=== PATIENT | male | born 1965 | race Caucasian/White ===

== ENCOUNTER 2025-02-15 13:46 | Observation (INO) | payer MEDICARE, SELFPAY ==
[2025-02-15] VITALS (7 sets, daily range): BP systolic 121–156; BP diastolic 57–83; PULSE 74–96; RESP 16–21; TEMP 36.3–36.7; O2SAT 97–99; BMI 23.0; BMI 21.6
[2025-02-15 13:55] LABS: Glucose Point of Care 144 mg/dL (70-110)
--- NOTE | 2025-02-15 14:13 | XRR_ITS ---
PROCEDURE INFORMATION: Exam: XR Chest Exam date and time: 02/15/2025 2:19 PM Age: 59 years old Clinical indication: Other: Weakness TECHNIQUE: Imaging protocol: Radiologic exam of the chest. Views: 1 view. COMPARISON: No relevant prior studies available. FINDINGS: Lungs: Unremarkable. No consolidation. Pleural spaces: Unremarkable. No pleural effusion. No pneumothorax. Heart/Mediastinum: Unremarkable. No cardiomegaly. Bones/joints: Unremarkable. XR/XR chest 1V portable [id number] IMPRESSION: No acute findings.
--- NOTE | 2025-02-15 14:46 | ECG_ITS ---
[facility] Test Date: 2025-02-15 Pat Name: Keo Pratt Department: Room: Gender: Male Travel Cota: : 1965 Requested By: Jean Pierre Perez Order Number: [id number] Eric MD: Madelyn Smith M.D. Measurements Intervals [place] Rate: 99 P: 76 KS: 136 QRS: 75 QRSD: 101 T: 39 QT: 382 QTc: 492 Interpretive Statements SINUS RHYTHM WITH OCCASIONAL VENTRICULAR PREMATURE COMPLEXES NONSPECIFIC ST & T-WAVE ABNORMALITY No previous ECG available for comparison Electronically Signed On 02-15-2025 17:40:53 CDT by Madelyn Smith M.D. [email or web address]
[2025-02-15 14:59] LABS: Basophils # 0.1 10^3/uL (0.0-0.1); Basophils % 0.7 %; Eosinophils # 0.1 10^3/uL (0.0-0.8); Eosinophils % 0.7 %; Lymphocytes # 1.7 10^3/uL (0.8-4.8); Lymphocytes % 15.9 %; Mean Corpuscular HGB Conc 36.2 g/dL (30-55); Mean Corpuscular Volume 91.1 fl (82-101); Mean Platelet Volume 9.4 fL (7.4-10.4); Monocytes # 0.7 10^3/uL (0.2-0.9); Monocytes % 6.9 %; Neutrophils # 8.05 10^3/uL (1.8-7.7); Neutrophils % 75.4 %; Nucleated Red Blood Cells % 0 %; Platelet Count 279 10^3/cmm (157-399); Red Blood Count 4.94 10^6/uL (3.85-5.65); Red Cell Distribution Width 12.9 % (12.1-15.1); White Blood Count 10.68 10^3/uL (3.29-11.43)
--- NOTE | 2025-02-15 15:23 | CTR_ITS ---
PROCEDURE INFORMATION: Exam: CT Head Without Contrast Exam date and time: 02/15/2025 3:33 PM Age: 59 years old Clinical indication: Weakness, extremity TECHNIQUE: Imaging protocol: Computed tomography of the head without contrast. Radiation optimization: All CT scans at this facility use at least one of these dose optimization techniques: automated exposure control; mA and/or kV adjustment per patient size (includes targeted exams where dose is matched to clinical indication); or iterative reconstruction. COMPARISON: CT angio headneck* [id number] 02/15/2025 3:33 PM RADIATION DOSE METRICS: Total DLP (mGy-cm): 1032.4 FINDINGS: Brain: Normal. No hemorrhage. Unremarkable white matter. No mass effect. Cerebral ventricles: No ventriculomegaly. Paranasal sinuses: Visualized sinuses are unremarkable. No fluid levels. Mastoid air cells: Visualized mastoid air cells are well aerated. Bones: Unremarkable. No acute fracture. Soft tissues: Unremarkable. CT/CT head wo con* [id number] IMPRESSION: No acute intracranial abnormality.
--- NOTE | 2025-02-15 15:27 | CTR_ITS ---
PROCEDURE INFORMATION: Exam: CTA Head With Contrast, Arteriography Exam date and time: 02/15/2025 3:33 PM Age: 59 years old Clinical indication: Weakness; Additional info: CVA TECHNIQUE: Imaging protocol: Computed tomographic angiography of the head with contrast. Exam focused on the arteries. 3D rendering (Not supervised by radiologist): MIP and/or 3D reconstructed images were created by the technologist. Radiation optimization: All CT scans at this facility use at least one of these dose optimization techniques: automated exposure control; mA and/or kV adjustment per patient size (includes targeted exams where dose is matched to clinical indication); or iterative reconstruction. Contrast material: OMNI 350; Contrast volume: 100 ml; Contrast route: INTRAVENOUS (IV); COMPARISON: CT head wo con* [id number] 02/15/2025 3:33 PM RADIATION DOSE METRICS: Total DLP (mGy-cm): 381.4 FINDINGS: ANTERIOR CIRCULATION: Right internal carotid artery: Intracranial segment is patent with no significant stenosis. No aneurysm. Right middle cerebral artery: No occlusion or significant stenosis. No aneurysm. Right anterior cerebral artery: No occlusion or significant stenosis. No aneurysm. Left internal carotid artery: Intracranial segment is patent with no significant stenosis. No aneurysm. Left middle cerebral artery: No occlusion or significant stenosis. No aneurysm. Left anterior cerebral artery: No occlusion or significant stenosis. No aneurysm. POSTERIOR CIRCULATION: Right vertebral artery: No occlusion or significant stenosis. No aneurysm. Left vertebral artery: No occlusion or significant stenosis. No aneurysm. Basilar artery: No occlusion or significant stenosis. No aneurysm. Right posterior cerebral artery: No occlusion or significant stenosis. No aneurysm. Left posterior cerebral artery: No occlusion or significant stenosis. No aneurysm. Brain: No definite mass, mass effect, or midline shift. Cerebral ventricles: No ventriculomegaly. Bones/joints: Unremarkable. No acute fracture. Soft tissues: Unremarkable. PROCEDURE INFORMATION: Exam: CTA Neck With Contrast Exam date and time: 02/15/2025 3:33 PM Age: 59 years old Clinical indication: Weakness; Additional info: CVA TECHNIQUE: Imaging protocol: Computed tomographic angiography of the neck with contrast. Exam focused on the cervical segments of the vasculature. 3D rendering (Not supervised by radiologist): MIP and/or 3D reconstructed images were created by the technologist. Radiation optimization: All CT scans at this facility use at least one of these dose optimization techniques: automated exposure control; mA and/or kV adjustment per patient size (includes targeted exams where dose is matched to clinical indication); or iterative reconstruction. Contrast material: OMNI 350; Contrast volume: 100 ml; Contrast route: INTRAVENOUS (IV); COMPARISON: CR XR chest 1V portable [id number] 02/15/2025 2:19 PM RADIATION DOSE METRICS: Total DLP (mGy-cm): 381.4 FINDINGS: Right common carotid artery: No stenosis. No dissection or occlusion. Right internal carotid artery: No stenosis of the extracranial segment. No dissection or occlusion. Right external carotid artery: No occlusion or stenosis of the origin. Left common carotid artery: No stenosis. No dissection or occlusion. Left internal carotid artery: No stenosis of the extracranial segment. No dissection or occlusion. Left external carotid artery: No occlusion or stenosis of the origin. Right vertebral artery: No stenosis. No dissection or occlusion. Left vertebral artery: No stenosis. No dissection or occlusion. Soft tissues: Normal. No significant soft tissue swelling. Bones/joints: No acute fracture. CT/CT angio headneck* [id number] IMPRESSION: No large vessel stenosis or occlusion. IMPRESSION: No stenosis or occlusion. REFERENCES: NASCET CRITERIA. The degree of stenosis in the cervical segment of the internal carotid artery is based on NASCET criteria. Normal is no stenosis. Mild is less than 50% stenosis. Moderate is 50-69% stenosis. Severe is 70% to 99% stenosis. Total occlusion is no detectable patent lumen.
--- NOTE | 2025-02-15 15:29 | ED_ITS ---
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 States over the last 3 days he had symptoms similar to his previous stroke. He states the last 3 days he has been having unsteady gait feeling extremely weak having some right eye vision changes. States he is having allover weakness states that last known normal was 3 days ago but has gotten worse today he denies any headaches denies any falls. Associated symptoms: Denies chest pain, chills, fever(s), headache(s), nausea or vomiting Review of Systems 2 Const: Denies: fever(s), chills, body aches or change in appetite Eyes: Reports: change in vision and blurry vision; Denies: eye discomfort ENMT: Denies: throat pain or dental pain Card: Denies: chest pain Resp: Denies: dyspnea GI: Denies: abdominal pain, nausea, vomiting or diarrhea Musc: Denies: neck pain or back pain Skin/Breast: Denies: rash Neuro: Reports: weakness in extremities and difficulty walking; Denies: headache(s) Physical Exam 2 Const: COMMON NORMALS: no acute distress, patient oriented x3 and healthy appearing HENMT: COMMON NORMALS: normocephalic and atraumatic HEAD & SCALP: n ormocephalic and atraumatic Eye: COMMON NORMALS: Equal, round and reactive pupils present and EOMs intact bilaterally PUPIL: Yes Equal, round and reactive pupils present Neck/C-Spine: COMMON NORMALS: full ROM and supple Chest: COMMONS NORMALS: normal inspection of the chest Resp: COMMON NORMALS: normal respiratory effort Cardio: COMMON NORMALS: regular rate, regular rhythm and No murmurs present (Cardio) RATE: regular rate RHYTHM: regular rhythm Extremity: COMMON NORMALS: normal to inspection and full ROM Neuro: COMMON NORMALS: patient oriented x3 OTHER: Patient has a difficult time standing along with ataxic gait some right sided weakness. Psych: COMMON NORMALS: mental status grossly normal, Normal thought process present and cooperative THOUGHT PROCESS: Normal thought process present Skin: COMMON NORMALS: no rashes or lesions noted and no wounds GENERAL SKIN EXAM: no rashes or lesions noted Course 2 Vital Signs: Vital signs: Vital Signs Temperature 97.8 F 02/15/25 13:52 Pulse Rate 96 02/15/25 13:52 Respiratory Rate 21 H 02/15/25 13:52 Blood Pressure 143/75 02/15/25 13:52 Pulse Oximetry 99 02/15/25 13:52 Oxygen Delivery Me thod Room Air 02/15/25 13:52 MDM - Weakness Medical Decision Making Patient presents here with weakness he is having ataxia some vision changes has had a history of strokes in the past this has been going on for 3 days his last known normal was 3 days ago he is not a tPA candidate due to timing CTA showed no acute thrombus he is hypokalemic I spoke to the hospitalist will admit at this time. Medical Records I reviewed the patient's medical records. Lab Data I reviewed the patient's lab results. 02/15/25 14:35 02/15/25 14:35 Radiology Impressions Chest X-Ray 02/15/25 14:13 IMPRESSION: No acute findings. Head CT 02/15/25 15:23 IMPRESSION: No acute intracranial abnormality. Head/Neck CTA 02/15/25 15:27 IMPRESSION: No large vessel stenosis or occlusion. IMPRESSION: No stenosis or occlusion. REFERENCES: NASCET CRITERIA. The degree of stenosis in the cervical segment of the internal carotid artery is based on NASCET criteria. Normal is no stenosis. Mild is less than 50% stenosis. Moderate is 50-69% stenosis. Severe is 70% to 99% stenosis. Total occlusion is no detectable patent lumen. Laboratory Results WBC 10.68 10^3/uL (3.29-11.43) 02/15/25 14:35 RBC 4.94 10^6/uL (3.85-5.65) 02/15/25 14:35 Hgb 16.30 g/dL (11.27-16.99) 02/15/25 14:35 Hct 45.0 % (37-53) 02/15/25 14:35 MCV 91.1 fl (82-101) 02/15/25 14:35 MCH 33.0 pg (27-33) 02/15/25 14:35 MCHC 36.2 g/dL (30-55) 02/15/25 14:35 RDW 12.9 % (12.1-15.1) 02/15/25 14:35 Plt Count 279 10^3/cmm (157-399) 02/15/25 14:35 MPV 9.4 fL (7.4-10.4) 02/15/25 14:35 Neut % (Auto) 75.4 % 02/15/25 14:35 Lymph % (Auto) 15.9 % 02/15/25 14:35 Pershing % (Auto) 6.9 % 02/15/25 14:35 Eos % (Auto) 0.7 % 02/15/25 14:35 Baso % (Auto) 0.7 % 02/15/25 14:35 Neut # (Auto) 8.05 10^3/uL (1.8-7.7) H 02/15/25 14:35 Lymph # (Auto) 1.7 10^3/uL (0.8-4.8) 02/15/25 14:35 Pershing # (Auto) 0.7 10^3/uL (0.2-0.9) 02/15/25 14:35 Eos # (Auto) 0.1 10^3/uL (0.0-0.8) 02/15/25 14:35 Baso # (Auto) 0.1 10^3/uL (0.0-0.1) 02/15/25 14:35 Nucleated RBC % (auto) 0 % 02/15/25 14:35 Nucleated RBCs # 0.0 /100WBC 02/15/25 14:35 PT 11.90 SECONDS (12.1-14.9) L 02/15/25 11:13 INR 0.82 (0.8-1.2) 02/15/25 11:13 Sodium 144 mmol/L (136-145) 02/15/25 14:35 Potassium 2.8 mmol/L (3.5-5.1) L* 02/15/25 14:35 Chloride 105 mmol/L (98-107) 02/15/25 14:35 Carbon Dioxide 22 mmol/L (22-29) 02/15/25 14:35 Anion Gap 19.8 (5-19) H 02/15/25 14:35 BUN 18 mg/dL (6-20) 02/15/25 14:35 Creatinine 0.7 mg/dL (0.7-1.2) 02/15/25 14:35 GFR Calculation 116.2 mL/min (90-130) 02/15/25 14:35 Glucose 56 mg/dL (65-115) L 02/15/25 14:35 POC Glucose 144 mg/dL (70-110) H 02/15/25 13:51 Calculated Osmolality 298 mOsm/kg (285-295) H 02/15/25 14:35 Calcium 10.1 mg/dL (8.5-10.5) 02/15/25 14:35 Magnesium 1.8 mg/dL (1.7-2.3) 02/15/25 14:35 Total Bilirubin 0.2 mg/dL (0.15-1.2) 02/15/25 14:35 AST 23 U/L (0-40) 02/15/25 14:35 ALT 22 U/L (0-41) 02/15/25 14:35 Alkaline Phosphatase 71 U/L (40-130) 02/15/25 14:35 Total Protein 7.5 g/dL (6.6-8.7) 02/15/25 14:35 Albumin 4.6 g/dL (3.5-5.2) 02/15/25 14:35 Globulin 2.9 g/dL (1.3-4.6) 02/15/25 14:35 TSH 1.70 uIU/mL (0.27-4.20) 02/15/25 14:35 All radiology interpretation(s) finalized by discharge Discharge Plan Discharge Patient Disposition: Admitted As Inpatient Clinical Impression: Weakness, Hypokalemia Condition: Stable Coding Level of Care Code ED Online Marketer for g Fwd Related Data Allergies Allergy/AdvReac Type Severity Reaction Status Date / Time cephalexin (From Keflex) Allergy ALGY-Hives Verified 02/15/25 13:58 Penicillins Allergy ALGY-Hives Verified 02/15/25 13:58 NIH stroke score NIHSS Level Of Consciousness - 1a: 0 Level Of Consciousness Questions - 1b: Both Correct Level Of Consciousness Commands - 1c: Both Correct Best Gaze - 2: Normal Visual Oswald - 3: Partial Hemianopia Facial Palsy - 4: Normal Motor Arm Right - 5: Drift Motor Arm Left - 5: No Drift Motor Leg Right - 6: Drift Motor Leg Left - 6: No Drift Limb Ataxia - 7: Present In One Limb Sensory - 8: Normal Best Language - 9: No Aphasia Dysarthia - 10: Normal Extinction And Inattention - 11: 0 Score Total Score: 4
[2025-02-15 15:31] LABS: Alanine Aminotransferase 22 U/L (0-41); Albumin Level 4.6 g/dL (3.5-5.2); Alkaline Phosphatase 71 U/L (40-130); Anion Gap 19.8 (5-19); Aspartate Amino Transferase 23 U/L (0-40); Blood Urea Nitrogen 18 mg/dL (6-20); Calcium 10.1 mg/dL (8.5-10.5); Carbon Dioxide 22 mmol/L (22-29); Chloride 105 mmol/L (98-107); Creatinine Clr Calc Pharmacy 109.2359; Globulin 2.9 g/dL (1.3-4.6); Glomerular Filtration Rate 116.2 mL/min (90-130); Glucose 56 mg/dL (65-115); Osmolality Calculated 298 mOsm/kg (285-295); Sodium 144 mmol/L (136-145); Total Bilirubin 0.2 mg/dL (0.15-1.2); Total Protein 7.5 g/dL (6.6-8.7)
[2025-02-15 15:32] LABS: Potassium 2.8 mmol/L (3.5-5.1)
[2025-02-15] MEDS: iohexol 350 mg/mL 500 mL Btl (per mL) IV (15:39)
[2025-02-15] MEDS: potassium chloride ER 20 mEq Tablet 40 MEQ PO ×2 (15:46→18:36)
[2025-02-15 16:01] LABS: INR 0.82 (0.8-1.2)
[2025-02-15 16:08] LABS: Magnesium 1.8 mg/dL (1.7-2.3)
--- NOTE | 2025-02-15 16:28 | PC.PHAR ---
Addendum entered by Niki Daniel 02/15/25 16:47: Med list found and is from [facility]-returned to pts' room. Original Note: Pt states he took his am medications today. Family states pt gave the nurse a packet with his current med list in it. We are unable to find it. Nothing comes in from internal or external med list.
[2025-02-15] MEDS: aspirin 81 mg Chew Tablet 324 MG PO (17:09)
--- NOTE | 2025-02-15 17:14 | PM.HP ---
Providers/Chief Complaint Admitting Physician: Nils Johnson MD Chief Complaint: stroke like symptoms History of Present Illness Keo Pratt is a 59 year old male with history of brainstem stroke in what he reports as 50% right vertebral stenosis 2021 and 2022 in [facility], increased to 75% in December 2023 in [place]. He has been ataxic in the mornings for a couple hours and requires a walking stick and then this improves. Last couple days he has had sharp spasms in charley horse cramps in his legs throat and chest. He thought his ataxia was reminiscent of his past brainstem stroke. For this reason he presented to the emergency department. He does not have a local physician. Previously he lived with his girlfriend and [place] and then lived in [place]. He has been recently moved in with his [id number] Devi Nagy who is present at bedside and his brother Goyo Pratt. Patient has never had carotid or vertebral surgery. He reports that his blood sugars have been up-and-down recently. Notably he has a history of hernia that he was going to have repaired 03/08/2024 but that was canceled due to his blood sugar being 503. Patient reports he has had pancreatitis 03/03/2025 but is not an alcoholic. He drinks about 2 beers a week Review of Systems Narrative: General Positive for weakness dizziness confusion Cardiovascular no chest pain palpitations or edema Respiratory no shortness of breath cough wheezing GI no nausea vomiting diarrhea constipation no dysuria he has had some urinary hesitancy and was having trouble voiding into the urinal Neuro positive for stroke with ataxia. Mostly his motor strength has been preserved. He says his balance is bad in the mornings better through the day Musculoskeletal he has had cramps legs chest and throat Medications/Allergies Home Medications ?Medication ?Instructions ?Recorded ?Confirmed ?Last Taken ?Type acetaminophen 500 mg tablet 500 mg PO Q6H PRN Pain 02/15/25 02/15/25 Unknown History amlodipine 5 mg tablet 5 mg PO QPM 02/15/25 02/15/25 02/14/25 History aspirin 81 mg tablet,delayed 81 mg PO .@NOON 02/15/25 02/15/25 02/15/25 History release atorvastatin 80 mg tablet 80 mg PO QPM 02/15/25 02/15/25 02/14/25 History clopidogrel 75 mg tablet 75 mg PO .@NOON 02/15/25 02/15/25 02/15/25 History empagliflozin 25 mg tablet 25 mg PO QAM 02/15/25 02/15/25 02/15/25 History (Jardiance) fluoxetine 20 mg capsule (Prozac) 20 mg PO QAM 02/15/25 02/15/25 02/15/25 History icosapent ethyl 1 gram capsule 2 g PO BID 02/15/25 02/15/25 02/15/25 History (Vascepa) insulin aspart U-100 100 unit/mL 8 - 10 unit SUBCUT TID 02/15/25 02/15/25 02/15/25 History (3 mL) subcutaneous pen (Novolog FlexPen U-100 Insulin aspart) insulin detemir U-100 100 unit/mL 60 unit SUBCUT BID 02/15/25 02/15/25 02/15/25 History (3 mL) subcutaneous pen lisinopril 20 mg tablet 20 mg PO QAM 02/15/25 02/15/25 02/15/25 History methocarbamol 500 mg tablet 500 mg PO QID 02/15/25 02/15/25 02/15/25 History omeprazole 40 mg capsule,delayed 40 mg PO DAILY 02/15/25 02/15/25 02/15/25 History release tadalafil 5 mg tablet 5 mg PO QPM 02/15/25 02/15/25 02/14/25 History Allergies Allergy/AdvReac Type Severity Reaction Status Date / Time cephalexin (From Keflex) Allergy ALGY-Hives Verified 02/15/25 13:58 Penicillins Allergy ALGY-Hives Verified 02/15/25 13:58 PFSH Acute PFSH: Medical History (Updated 02/15/25 @ 17:23 by Nils Johnson MD) Ataxia due to acute cerebrovascular disease Social History (Updated 02/15/25 @ 17:20 by Nils Johnson MD) Smoking and tobacco/nicotine status: former use of tobacco/nicotine Quit status (tobacco/nicotine): has quit using Alcohol intake: current Alcohol intake frequency: few times a week Alcohol use comment: 2 drinks a week mostly beer Substance/Drug Use: never Additional social history: He wants full code as discussed today with myself and his ecxvjc-rq-[id number] Devi Vitals/I&O/Wt Last Vital Signs Temp 97.8 F 02/15/25 13:52 Pulse 79 02/15/25 17:13 Resp 21 H 02/15/25 13:52 BP 121/81 02/15/25 17:13 Pulse Ox 99 02/15/25 17:13 O2 Del Method Room Air 02/15/25 13:52 Weight last 48 hrs Weight 66.678 kg Physical Exam Narrative: General well-developed well-nourished male in no acute cardiopulmonary distress Neuro he has a befuddled affect. He is oriented to person place month not specific date he did know the Trump was or president. He continually states that he is confused Face is symmetric eye squint symmetric external ocular movements intact pupils equally round and reactive light accommodation Motor 5 - bilateral handgrips biceps triceps 5/5 patient's [id number]-za-rqbx is intact but he is slow to follow commands. No dysdiadochokinesis. Opvj-yd-qmvh is intact Skin damp and clammy CV regular rate and rhythm 2/6 systolic ejection murmur best heard at the right upper sternal border Lungs clear to auscultation bilateral Right neck trace radiated murmur from the heart I do not hear neck bruits Calves no edema or asymmetry Data 02/15/25 14:35 02/15/25 14:35 A&P Assessment and plan (1) Ataxia due to acute cerebrovascular disease: History of brainstem CVA and vertebral stenosis he describes a 75% but I do not have any records. Our CTA of the head and neck shows no stenosis occlusion or dissection of either side carotids or vertebrals. The patient's confusion and clamminess is consistent with hypoglycemia for which she had a blood sugar of 59 here we will recheck and follow (2) Hypokalemia: Potassium 2.8 and the patient is having cramps will replace (3) Hypoglycemia: Recheck blood sugars decrease insulin check A1c (4) Weakness: As above start physical therapy if not improving will obtain MRI of the brain PDMP PDMP Reviewed: Not Reviewed Attestations Medical Necessity Statement*: Patient be admitted to the hospital overnight for physical therapy and Occupational Therapy and monitoring blood sugars and for symptoms of possible stroke on telemetry I do not expect the hospitalization to cross 2 midnights Coding Level of Care Code 62114 Diagnoses Ataxia due to acute cerebrovascular disease I67.89; R27.0 Hypokalemia E87.6 Hypoglycemia E16.2 Weakness R53.1 Time Spent (min) 70
[2025-02-15 17:20] LABS: Glucose Point of Care 62 mg/dL (70-110)
[2025-02-15 18:07] LABS: Phosphorus 2.4 mg/dL (2.5-4.5)
[2025-02-15 18:12] LABS: Glucose Point of Care 57 mg/dL (70-110)
--- NOTE | 2025-02-15 18:21 | PC.NURSE ---
Patient has tick bites over entire body due to cutting wood.
[2025-02-15] MEDS: enoxaparin 40 mg/0.4 mL Syringe SUBCUT (18:36)
[2025-02-15] MEDS: amlodipine 5 mg Tablet PO (18:36)
[2025-02-15] MEDS: atorvastatin 40 mg Tablet 80 MG PO (18:37)
[2025-02-15 18:46] LABS: Glucose Point of Care 80 mg/dL (70-110)
[2025-02-15 20:55] LABS: Glucose Point of Care 99 mg/dL (70-110)
[2025-02-16] VITALS (7 sets, daily range): BP systolic 126–167; BP diastolic 62–96; PULSE 71–95; RESP 16–18; TEMP 36.5–36.8; O2SAT 95–99
[2025-02-16] MEDS: potassium chloride ER 20 mEq Tablet 40 MEQ PO (01:41)
[2025-02-16] MEDS: acetaminophen 325 mg Tablet 650 MG PO ×2 (01:43→18:01)
[2025-02-16 06:15] LABS: Anion Gap 14.6 (5-19); Blood Urea Nitrogen 12 mg/dL (6-20); Calcium 9.6 mg/dL (8.5-10.5); Carbon Dioxide 24 mmol/L (22-29); Chloride 103 mmol/L (98-107); Creatinine Clr Calc Pharmacy 124.4354; Glomerular Filtration Rate 138.9 mL/min (90-130); Glucose 426 mg/dL (65-115); Osmolality Calculated 302 mOsm/kg (285-295); Potassium 4.6 mmol/L (3.5-5.1); Sodium 137 mmol/L (136-145)
[2025-02-16] MEDS: lisinopril 20 mg Tablet PO (06:24)
[2025-02-16] MEDS: fluoxetine 20 mg Capsule PO (06:24)
[2025-02-16 06:58] LABS: Glucose Point of Care 353 mg/dL (70-110)
[2025-02-16] MEDS: pantoprazole DR 40 mg Tablet PO (09:16)
[2025-02-16] MEDS: insulin lispro 100 unit/1 mL SUBCUT ×4 (09:16→21:39)
--- NOTE | 2025-02-16 10:30 | PC.CHAP ---
Pastoral Care Encounter/Spiritual Assessment Type of Contact [] Declined junior mechanical engineer visit [] Patient/Family/Request visit [] Outpatient visit [] Follow-up visit [] Physician referral [] Code/Alert [x] Routine visit [] Staff referral [] Actively dying [] Patient sleeping [] Family support [] [] Out of room [] Palliative care [] [] Receiving care in room [] Pre-surgical visit [] Trauma [] Long length of stay [] ICU visit [] Other: Relational/Emotional Strength [x] Patient feels connected with others/family/visitors/staff [] Distress [] Loneliness/isolation [] Abandonment Spirituality of Patient [x] Person of Ana [] Attends Anglican of their Ana [x] Believes in Prayer [] Reads Bible or Hinduism materials [] There are Spiritual issues to be addressed Fermentation Manager Interventions [x] Prayer [x] Active listening [] Non-anxious presence [x] Spiritual/emotional support [] Crisis/trauma care [] Spiritual counseling [] Bereavement support [] Provided bereavement packet [] Provided Bible/devotional materials [] Provided toy/stuffed animal, coloring book to patient or family member [] Provided Communion [] Anointing/[place] [] Salvation [x] Completed spiritual assessment [] Other: Impact on Illness or Injury [] Angry [] Fearful [] Anxious [] Often cries [] Exhaustion [] Unable to work [] Unable to attend mosque [] Unable to walk/stand [] Unable to read [] Unable to drive [] Unable to eat/drink [] Unable to sleep [] Unable to be with family [] Patient intubated [] Other: Summary Time spent with patient 5 min
--- NOTE | 2025-02-16 11:46 | CTR_ITS ---
PROCEDURE INFORMATION: Exam: CT Abdomen And Pelvis With Contrast Exam date and time: 02/16/2025 1:19 PM Age: 59 years old Clinical indication: Abdominal pain; Epigastric; Additional info: Abdominal pain and weight loss, labile blood sugars, HX of pancreatitis TECHNIQUE: Imaging protocol: Computed tomography of the abdomen and pelvis with contrast. Radiation optimization: All CT scans at this facility use at least one of these dose optimization techniques: automated exposure control; mA and/or kV adjustment per patient size (includes targeted exams where dose is matched to clinical indication); or iterative reconstruction. Contrast material: OMNI 350; Contrast volume: 100 ml; Contrast route: INTRAVENOUS (IV); COMPARISON: CR XR chest 1V portable [id number] 02/15/2025 2:19 PM RADIATION DOSE METRICS: Total DLP (mGy-cm): 448.29 FINDINGS: Lungs: The visualized portions of the lungs are unremarkable. Liver: Subcentimeter hypodensity within the right hepatic lobe, too small to properly characterize. The liver is otherwise unremarkable. Gallbladder and biliary ducts: The gallbladder is unremarkable. No biliary dilation. Pancreas: The pancreas is unremarkable. Spleen: The spleen demonstrates punctate calcifications, consistent with remote granulomatous organism exposure. Adrenal glands: The adrenal glands are unremarkable. Kidneys and ureters: Bilateral simple renal cysts are present, as well as other subcentimeter hypodensities which are too small to characterize. Stomach and bowel: There is no bowel wall thickening. No bowel obstruction. Appendix: No evidence of appendicitis. Intraperitoneal space: No significant peritoneal free fluid. No free peritoneal air. Vasculature: The vasculature demonstrates diffuse mild atherosclerotic calcification. No aneurysm. Lymph nodes: No enlarged lymph nodes by size criteria. Urinary bladder: There is diffuse bladder wall thickening. Reproductive: Visualized portions of the male reproductive tract are unremarkable, though routine CT is limited in this regard. Bones/joints: The spine demonstrates mild degenerative changes at multiple levels. Soft tissues: Unremarkable. CT/CT abdomen pelvis w con* [id number] IMPRESSION: Diffuse bladder wall thickening, which is suspicious for cystitis in the appropriate clinical setting. COMMENTS: Consistent with the [employer]'s Incidental Findings Committee white paper (J Am Adrian Radiol 2018): Any incidental renal lesion less than 1 cm or classified as too small to characterize, or any incidental cystic renal lesion characterized as simple-appearing, is likely benign. No follow-up imaging is recommended for these lesions per consensus recommendations based on imaging criteria.
[2025-02-16 12:12] LABS: Alanine Aminotransferase 18 U/L (0-41); Albumin Level 3.7 g/dL (3.5-5.2); Alkaline Phosphatase 59 U/L (40-130); Aspartate Amino Transferase 21 U/L (0-40); Globulin 2.6 g/dL (1.3-4.6); Lipase 40 U/L (13-60); Total Bilirubin 0.4 mg/dL (0.15-1.2); Total Protein 6.3 g/dL (6.6-8.7)
[2025-02-16] MEDS: clopidogrel 75 mg Tablet PO (12:29)
[2025-02-16] MEDS: aspirin 81 mg EC Tablet PO (12:29)
[2025-02-16] MEDS: iohexol 350 mg/mL 500 mL Btl (per mL) PO (13:37)
--- NOTE | 2025-02-16 13:46 | P.PN_ITS ---
Subjective 2 Subjective: 59-year-old male accompanied b y his brother. He states that his muscle cramping has resolved. He thinks this is from hypokalemia and he and his brother have studied the white papers from a medical reference from the [employer] and they think that patient has chronic pancreatitis that is affecting his potassium and blood sugars anticipating the cramps. Patient has had abdominal pain intermittently left side for a year. He has had heavy alcoholism intermittently the heaviest was in year 1999 when he was drinking 1/5 of whiskey every 2 days plus a 30 pack of beer daily. More recently he just has 2 beers a week and he states October he drank moderately heavy for about a week and stopped during his break up withdrawal Patient was admitted for possibility of stroke but exam yesterday was reassuring, brother admittedly does not think this is consistent with the patient's past brainstem stroke and the patient himself admits that this is largely resolved. Patient has had CTA yesterday showing patent vertebrals and the carotids. 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 Vitals/I&O/Wt Last Vital Signs Temp 97.9 F 02/16/25 12:00 Pulse 72 02/16/25 12:00 Resp 16 02/16/25 12:00 BP 128/73 02/16/25 12:00 Pulse Ox 95 02/16/25 12:00 O2 Del Method Room Air 02/16/25 12:00 02/15/25 02/16/25 02/16/25 22:59 06:59 14:59 Intake Total 480 / 480 480 / 480 Balance 480 / 480 480 / 480 Weight last 48 hrs Weight 62.766 kg Weight 62.709 kg Weight 66.678 kg Physical Exam 2 Narrative: General well-developed well-nourished male in no acute cardiopulmonary distress CV regular rate and rhythm 2/6 systolic ejection murmur best heard at the right upper sternal border Lungs clear to auscultation bilateral Calves no edema or asymmetry Skin warm and dry Neuro he is alert and oriented x 3 able to ambulate on his own and speech is clear face is symmetric moves all extremities symmetrically Data 02/15/25 14:35 02/16/25 05:05 A&P Assessment and plan (1) Ataxia due to acute cerebrovascular disease: History of brainstem CVA and vertebral stenosis he describes a 75% but I do not have any records. Our CTA of the head and neck shows no stenosis occlusion or dissection of either side carotids or vertebrals. The patient's confusion and clamminess is consistent with hypoglycemia for which she had a blood sugar of 59 here we will recheck and follow (2) Hypokalemia: Potassium up to (3) Hypoglycemia: Insulin decreased but now the patient's blood sugars very high. He has labile blood sugars. Patient is concerned that he has a diseased pancreas but states that ultrasound showed his pancreas did not have gallstone at another facility (4) Weakness: Occupational Therapy evaluation for ADLs and balance. Weakness has largely resolved (5) Diabetes mellitus: Blood sugars are labile. Patient states this is a new finding I agree that imaging of the pancreas is appropriate. He reports a weight loss from 220 pounds down to 148 in 1 year PDMP PDMP Reviewed: Not Reviewed Attestations 2 Medical Necessity Statement*: Patient remained in the hospital 1 more night for occupational therapy and to monitor his sugars as well as get results of the CT scan of the abdomen and pelvis with contrast Coding Level of Care Code 24949 Diagnoses Ataxia due to acute cerebrovascular disease I67.89; R27.0 Hypokalemia E87.6 Hypoglycemia E16.2 Weakness R53.1 Diabetes mellitus E11.9 Time Spent (min) 35
[2025-02-16] MEDS: enoxaparin 40 mg/0.4 mL Syringe SUBCUT (17:58)
[2025-02-16] MEDS: atorvastatin 40 mg Tablet 80 MG PO (17:58)
[2025-02-16] MEDS: amlodipine 5 mg Tablet PO (17:58)
[2025-02-16] MEDS: insulin glargine 100 units/1 mL 60 UNIT SUBCUT (20:44)
[2025-02-16 21:12] LABS: Glucose Point of Care 409 mg/dL (70-110)
[2025-02-16 21:13] LABS: Glucose Point of Care 421 mg/dL (70-110)
[2025-02-16 21:14] LABS: Glucose Point of Care 349 mg/dL (70-110)
[2025-02-17 01:05] VITALS: BP 128/70; PULSE 92; RESP 18; TEMP 36.6; O2SAT 95
[2025-02-17 04:28] VITALS: BP 142/76; PULSE 93; RESP 17; TEMP 36.6; O2SAT 95
[2025-02-17 05:52] LABS: Amylase 84 U/L (21-101)
[2025-02-17 06:02] LABS: Anion Gap 13.8 (5-19); Blood Urea Nitrogen 12 mg/dL (6-20); Calcium 8.9 mg/dL (8.5-10.5); Carbon Dioxide 26 mmol/L (22-29); Chloride 105 mmol/L (98-107); Glomerular Filtration Rate 116.2 mL/min (90-130); Glucose 151 mg/dL (65-115); Osmolality Calculated 295 mOsm/kg (285-295); Potassium 3.8 mmol/L (3.5-5.1); Sodium 141 mmol/L (136-145)
[2025-02-17] MEDS: lisinopril 20 mg Tablet PO (06:13)
[2025-02-17] MEDS: fluoxetine 20 mg Capsule PO (06:13)
[2025-02-17 06:34] LABS: Glucose Point of Care 217 mg/dL (70-110)
[2025-02-17 07:51] VITALS: BP 120/76; PULSE 76; RESP 17; TEMP 36.4; O2SAT 98
[2025-02-17] MEDS: pantoprazole DR 40 mg Tablet PO (09:16)
[2025-02-17] MEDS: insulin lispro 100 unit/1 mL SUBCUT ×2 (09:16→13:46)
[2025-02-17] MEDS: insulin glargine 100 units/1 mL 45 UNIT SUBCUT (09:16)
[2025-02-17 09:18] LABS: Bilirubin Urine Negative (Negative); Blood Urine Negative (Negative); Glucose Urine UA 2+ (Normal); Ketones Urine Negative (Negative); Leukocyte Esterase Urine Negative (Negative); Nitrate Urine Negative (Negative); Protein Urine Negative (Negative); Urine Appearance Clear (CLEAR); Urine Color Dark Yellow (Yellow); pH Urine 5.5 (5-7)
[2025-02-17 09:23] LABS: Bacteria Urine None Seen /hpf; Hyaline Casts Urine 2.05 /lpf; RBC Urine 0-2 /hpf (0-2); Squamous Epithelial Cell Urine 0-5 /hpf (0-5); WBC Urine 0-5 /hpf (0-5)
[2025-02-17 09:34] LABS: Specific Gravity, Urine 1.031 (1.005-1.030)
[2025-02-17 10:53] LABS: Glucose Point of Care 282 mg/dL (70-110)
[2025-02-17 11:44] VITALS: BP 109/67; PULSE 72; RESP 16; TEMP 36.8; O2SAT 97
--- NOTE | 2025-02-17 13:44 | PM.DCS ---
Discharge Providers Date of Admission: 02/15/25 17:04 Date of Discharge: February 17, 2025 Attending Provider at Admission: Nils Johnson MD Attending Provider at Discharge: Nils Johnson MD Diagnoses at Discharge Discharge Diagnosis (1) Ataxia due to acute cerebrovascular disease: Status: Acute (2) Hypokalemia: Status: Acute (3) Hypoglycemia: Status: Acute (4) Weakness: Status: Acute (5) Diabetes mellitus: Status: Acute Reason for Visit Reason for Visit: stroke like symptoms Brief History: Keo Pratt is a 59 year old male with history of brainstem stroke in what he reports as 50% right vertebral stenosis 2021 and 2022 in [facility], increased to 75% in December 2023 in [place]. He has been ataxic in the mornings for a couple hours and requires a walking stick and then this improves. Last couple days he has had sharp spasms in charley horse cramps in his legs throat and chest. He thought his ataxia was reminiscent of his past brainstem stroke. For this reason he presented to the emergency department. He does not have a local physician. Previously he lived with his girlfriend and [place] and then lived in [place]. He has been recently moved in with his [id number] Devi Nagy who is present at bedside and his brother Goyo Pratt. Patient has never had carotid or vertebral surgery. He reports that his blood sugars have been up-and-down recently. Notably he has a history of hernia that he was going to have repaired 03/08/2024 but that was canceled due to his blood sugar being 503. Patient reports he has had pancreatitis 03/03/2025 but is not an alcoholic. He drinks about 2 beers a week Hospital Course Hospital Course Patient was admitted to the hospital with leg chest and throat cramps attributable to his hypokalemia. This resolved with potassium replacement but was not well explained in regards to etiology for hypokalemia. Patient does not report recent diarrhea, nausea vomiting or any diuretic usage. Potassium was 2.8. Patient next day was much improved and ataxia resolved. Because his ataxia was for the 3 days preceding admission and essentially resolved I canceled plans for MRI of the brain. Because he was complaining of history of pancreatitis and abdominal bloating I did proceed with CT scan of the abdomen and pelvis with IV and oral contrast which showed no gallstones and no pancreatitis. What was seen was diffuse thickening of the bladder possibly related to chronic cystitis or bladder outlet obstruction. Patient was voiding okay here and renal function has been normal. Blood sugars have been labile and he is not sure why he stopped taking metformin in the past but thinks there may have been some GI symptoms. We have elected to start it back in 500 mg twice a day med for. Decrease Levemir to 50 units twice a day and continue sliding scale and Physical Exam Narrative: General well-developed well-nourished male in no acute cardiopulmonary distress CV regular rate and rhythm Lungs clear to auscultation bilaterally Abdomen positive bowel sounds soft he has some thickening of the abdominal wall subcutaneous tissue bilateral lower quadrants consistent with where insulin injections are given. I am not finding any masses underneath the subcutaneous Calves no edema Neuro patient moves all extremities symmetrically he is alert and oriented x 3 Discharge Data Studies Completed and Pending Completed Studies During Hospitalization Category Date Time Status CT abdomen pelvis w con* [id number] Routine Cat Scan 02/16/25 11:[address] head wo con* [id number] Stat Cat Scan 02/15/25 15:23 Completed CTA head neck [CT angio headneck* [id number]] Stat Cat Scan 02/15/25 15:27 Completed XR chest 1V portable [id number] Stat Exams 02/15/25 14:13 Completed Pending at discharge Category Date Time Status Basic Metabolic Panel AM LABS Lab 02/18/25 04:00 Ordered Urinalysis Stat Lab 02/17/25 09:19 Ordered Radiology Impressions Chest X-Ray 02/15/25 14:13 IMPRESSION: No acute findings. Head CT 02/15/25 15:23 IMPRESSION: No acute intracranial abnormality. Head/Neck CTA 02/15/25 15:27 IMPRESSION: No large vessel stenosis or occlusion. IMPRESSION: No stenosis or occlusion. REFERENCES: NASCET CRITERIA. The degree of stenosis in the cervical segment of the internal carotid artery is based on NASCET criteria. Normal is no stenosis. Mild is less than 50% stenosis. Moderate is 50-69% stenosis. Severe is 70% to 99% stenosis. Total occlusion is no detectable patent lumen. Abdomen/Pelvis CT 02/16/25 11:46 IMPRESSION: Diffuse bladder wall thickening, which is suspicious for cystitis in the appropriate clinical setting. COMMENTS: Consistent with the [employer]'s Incidental Findings Committee white paper (J Am Adrian Radiol 2018): Any incidental renal lesion less than 1 cm or classified as too small to characterize, or any incidental cystic renal lesion characterized as simple-appearing, is likely benign. No follow-up imaging is recommended for these lesions per consensus recommendations based on imaging criteria. Laboratory Results WBC 10.68 10^3/uL (3.29-11.43) 02/15/25 14:35 RBC 4.94 10^6/uL (3.85-5.65) 02/15/25 14:35 Hgb 16.30 g/dL (11.27-16.99) 02/15/25 14:35 Hct 45.0 % (37-53) 02/15/25 14:35 MCV 91.1 fl (82-101) 02/15/25 14:35 MCH 33.0 pg (27-33) 02/15/25 14:35 MCHC 36.2 g/dL (30-55) 02/15/25 14:35 RDW 12.9 % (12.1-15.1) 02/15/25 14:35 Plt Count 279 10^3/cmm (157-399) 02/15/25 14:35 MPV 9.4 fL (7.4-10.4) 02/15/25 14:35 Neut % (Auto) 75.4 % 02/15/25 14:35 Lymph % (Auto) 15.9 % 02/15/25 14:35 [place] % (Auto) 6.9 % 02/15/25 14:35 Eos % (Auto) 0.7 % 02/15/25 14:35 Baso % (Auto) 0.7 % 02/15/25 14:35 Neut # (Auto) 8.05 10^3/uL (1.8-7.7) H 02/15/25 14:35 Lymph # (Auto) 1.7 10^3/uL (0.8-4.8) 02/15/25 14:35 [place] # (Auto) 0.7 10^3/uL (0.2-0.9) 02/15/25 14:35 Eos # (Auto) 0.1 10^3/uL (0.0-0.8) 02/15/25 14:35 Baso # (Auto) 0.1 10^3/uL (0.0-0.1) 02/15/25 14:35 Nucleated RBC % (auto) 0 % 02/15/25 14:35 Nucleated RBCs # 0.0 /100WBC 02/15/25 14:35 PT 11.90 SECONDS (12.1-14.9) L 02/15/25 11:13 INR 0.82 (0.8-1.2) 02/15/25 11:13 Sodium 141 mmol/L (136-145) 02/17/25 05:02 Potassium 3.8 mmol/L (3.5-5.1) 02/17/25 05:02 Chloride 105 mmol/L (98-107) 02/17/25 05:02 Carbon Dioxide 26 mmol/L (22-29) 02/17/25 05:02 Anion Gap 13.8 (5-19) 02/17/25 05:02 BUN 12 mg/dL (6-20) 02/17/25 05:02 Creatinine 0.7 mg/dL (0.7-1.2) 02/17/25 05:02 GFR Calculation 116.2 mL/min (90-130) 02/17/25 05:02 Glucose 151 mg/dL (65-115) H 02/17/25 05:02 POC Glucose 282 mg/dL (70-110) H 02/17/25 10:46 Calculated Osmolality 295 mOsm/kg (285-295) 02/17/25 05:02 Calcium 8.9 mg/dL (8.5-10.5) 02/17/25 05:02 Phosphorus 2.4 mg/dL (2.5-4.5) L 02/15/25 14:35 Magnesium 1.8 mg/dL (1.7-2.3) 02/15/25 14:35 Magnesium Cancelled 02/15/25 14:35 Total Bilirubin 0.4 mg/dL (0.15-1.2) 02/16/25 05:05 Direct Bilirubin 0.20 mg/dL (0.00-0.30) 02/16/25 05:05 AST 21 U/L (0-40) 02/16/25 05:05 ALT 18 U/L (0-41) 02/16/25 05:05 Alkaline Phosphatase 59 U/L (40-130) 02/16/25 05:05 Total Protein 6.3 g/dL (6.6-8.7) L 02/16/25 05:05 Albumin 3.7 g/dL (3.5-5.2) 02/16/25 05:05 Globulin 2.6 g/dL (1.3-4.6) 02/16/25 05:05 Amylase 84 U/L (21-101) 02/16/25 13:48 Lipase 40 U/L (13-60) 02/16/25 05:05 TSH 1.70 uIU/mL (0.27-4.20) 02/15/25 14:35 Urine Color Dark yellow (Yellow) A 02/17/25 08:05 Urine Appearance Clear (CLEAR) 02/17/25 08:05 Urine pH 5.5 (5-7) 02/17/25 08:05 Ur Specific [place] 1.031 (1.005-1.030) H 02/17/25 08:05 Urine Protein Negative (Negative) 02/17/25 08:05 Urine Glucose (UA) 2+ (Normal) H 02/17/25 08:05 Urine Ketones Negative (Negative) 02/17/25 08:05 Urine Blood Negative (Negative) 02/17/25 08:05 Urine Nitrate Negative (Negative) 02/17/25 08:05 Urine Bilirubin Negative (Negative) 02/17/25 08:05 Urine Urobilinogen 1.0 mg/dL (Negative) 02/17/25 08:05 Ur Leukocyte Esterase Negative (Negative) 02/17/25 08:05 Urine RBC 0-2 /hpf (0-2) 02/17/25 08:05 Urine WBC 0-5 /hpf (0-5) 02/17/25 08:05 Ur Squamous Epith Cells 0-5 /hpf (0-5) 02/17/25 08:05 Amorphous Sediment Not Reportable 02/17/25 08:05 Urine Bacteria None seen /hpf (NONE) 02/17/25 08:05 Hyaline Casts 2.05 /lpf 02/17/25 08:[address] Abd/Pel: Radiologist's impression: Diffuse bladder wall thickening Vitals Last Vital Signs Temp 98.3 F 02/17/25 11:44 Pulse 72 02/17/25 11:44 Resp 16 02/17/25 11:44 BP 109/67 02/17/25 11:44 Pulse Ox 97 02/17/25 11:44 O2 Del Method Room Air 02/17/25 11:44 Discharge Plan Discharge Patient Disposition: Home Condition: Stable Prescriptions: New metformin 500 mg tablet 500 mg PO BID Qty: 60 0RF potassium chloride 10 mEq capsule, extended release 10 meq PO DAILY Qty: 30 0RF Continued atorvastatin 80 mg Tablet 80 mg PO QPM lisinopril 20 mg Tablet 20 mg PO QAM clopidogrel 75 mg Tablet 75 mg PO .@NOON amlodipine 5 mg Tablet 5 mg PO QPM omeprazole 40 mg Capsule,Delayed Release(Dr/Ec) 40 mg PO DAILY aspirin [Aspir-81] 81 mg Tablet,Delayed Release (Dr/Ec) 81 mg PO .@NOON acetaminophen 500 mg Tablet 500 mg PO Q6H PRN (Reason: Pain) fluoxetine [Prozac] 20 mg Capsule 20 mg PO QAM insulin aspart U-100 [Novolog FlexPen U-100 Insulin] 100 unit/mL (3 mL) Insulin Pen 8 - 10 unit SUBCUT TID tadalafil 5 mg Tablet 5 mg PO QPM icosapent ethyl [Vascepa] 1 gram Capsule 2 g PO BID Jardiance 25 mg Tablet 25 mg PO QAM Changed insulin detemir U-100 100 unit/mL (3 mL) Insulin Pen 50 unit SUBCUT BID Qty: 15 0RF Discontinued methocarbamol [Robaxin] 500 mg Tablet 500 mg PO QID Discharge Orders: Discharge Order (Routine); Ordered 02/17/25 Ordered By: Nils Johnson Discharge Diet: Diabetic Patient Instructions: Opioid Safety Activity Restrictions/Additional Instructions: follow up with primary care physician in 1-2 weeks follow up with urology in 1-2 weeks Coding Level of Care Code Acute Code for Chg Fwd Diagnoses Ataxia due to acute cerebrovascular disease I67.89; R27.0 Hypokalemia E87.6 Hypoglycemia E16.2 Weakness R53.1 Diabetes mellitus E11.9
[2025-02-17] MEDS: clopidogrel 75 mg Tablet PO (13:47)
[2025-02-17] MEDS: acetaminophen 325 mg Tablet 650 MG PO (13:47)
[2025-02-17] MEDS: aspirin 81 mg EC Tablet PO (13:47)
--- NOTE | 2025-02-17 13:51 | P.DS_ITS ---
Discharge Providers Date of Admission: 02/15/25 17:04 Date of Discharge: February 17, 2025 Attending Provider at Admission: Nils Johnson MD Attending Provider at Discharge: Nils Johnson MD Diagnoses at Discharge Discharge Diagnosis (1) Ataxia due to acute cerebrovascular disease: Details from hospital stay: Resolved and thought to be related to low blood sugar in the setting of previous stroke but not acute stroke Status: Acute (2) Hypokalemia: Details from hospital stay: Unclear etiology for hypokalemia but the patient has some bladder wall thickening recommend follow-up with urology. I am going to replace potassium with potassium chloride 10 mill colons p.o. daily follow-up with primary care for Status: Acute (3) Hypoglycemia: Details from hospital stay: Diabetes with labile blood sugars. Mentation much improved with replacement of sugar. Decrease Levemir to 50 units twice a day continue with sliding scale Humalog add metformin 500 mg twice a day monitor for signs of GI distress Status: Acute (4) Weakness: Details from hospital stay: Result Status: Acute (5) Diabetes mellitus: Details from hospital stay: See above Status: Acute (6) Bladder wall thickening: Details from hospital stay: Recommend the patient follow-up with urology. UA was negative for infection. 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 He has been ataxic in the mornings for a couple hours and requires a walking stick and then this improves. Last couple days he has had sharp spasms in charley horse cramps in his legs throat and chest. He thought his ataxia was reminiscent of his past brainstem stroke. For this reason he presented to the emergency department. He does not have a local physician. Previously he lived with his girlfriend and [place] and then lived in [place]. He has been recently moved in with his [id number] Devi Nagy who is present at bedside and his brother Goyo Pratt. Patient has never had carotid or vertebral surgery. He reports that his blood sugars have been up-and-down recently. Notably he has a history of hernia that he was going to have repaired 03/08/2024 but that was canceled due to his blood sugar being 503. Patient reports he has had pancreatitis 03/03/2025 but is not an alcoholic. He drinks about 2 beers a week Hospital Course Hospital Course Patient was admitted to the hospital with leg chest and throat cramps attributable to his hypokalemia. This resolved with potassium replacement but was not well explained in regards to etiology for hypokalemia. Patient does not report recent diarrhea, nausea vomiting or any diuretic usage. Potassium was 2.8. Patient next day was much improved and ataxia resolved. Because his ataxia was for the 3 days preceding admission and essentially resolved I canceled plans for MRI of the brain. Because he was complaining of history of pancreatitis and abdominal bloating I did proceed with CT scan of the abdomen and pelvis with IV and oral contrast which showed no gallstones and no pancreatitis. What was seen was diffuse thickening of the bladder possibly related to chronic cystitis or bladder outlet obstruction. Patient was voiding okay here and renal function has been normal. Blood sugars have been labile and he is not sure why he stopped taking metformin in the past but thinks there may have been some GI symptoms. We have elected to start it back in 500 mg twice a day med for. Decrease Levemir to 50 units twice a day and continue sliding scale and Physical Exam Narrative: General well-developed well-nourished male in no acute cardiopulmonary distress CV regular rate and rhythm Lungs clear to auscultation bilaterally Abdomen positive bowel sounds soft he has some thickening of the abdominal wall subcutaneous tissue bilateral lower quadrants consistent with where insulin injections are given. I am not finding any masses underneath the subcutaneous Calves no edema Neuro patient moves all extremities symmetrically he is alert and oriented x 3 Discharge Data Studies Completed and Pending Completed Studies During Hospitalization Category Date Time Status CT abdomen pelvis w con* [id number] Routine Cat Scan 02/16/25 11:[address] head wo con* [id number] Stat Cat Scan 02/15/25 15:23 Completed CTA head neck [CT angio headneck* [id number]] Stat Cat Scan 02/15/25 15:27 Completed XR chest 1V portable [id number] Stat Exams 02/15/25 14:13 Completed Pending at discharge Category Date Time Status Basic Metabolic Panel AM LABS Lab 02/18/25 04:00 Ordered Urinalysis Stat Lab 02/17/25 09:19 Ordered Radiology Impressions Chest X-Ray 02/15/25 14:13 IMPRESSION: No acute findings. Head CT 02/15/25 15:23 IMPRESSION: No acute intracranial abnormality. Head/Neck CTA 02/15/25 15:27 IMPRESSION: No large vessel stenosis or occlusion. IMPRESSION: No stenosis or occlusion. REFERENCES: NASCET CRITERIA. The degree of stenosis in the cervical segment of the internal carotid artery is based on NASCET criteria. Normal is no stenosis. Mild is less than 50% stenosis. Moderate is 50-69% stenosis. Severe is 70% to 99% stenosis. Total occlusion is no detectable patent lumen. Abdomen/Pelvis CT 02/16/25 11:46 IMPRESSION: Diffuse bladder wall thickening, which is suspicious for cystitis in the appropriate clinical setting. COMMENTS: Consistent with the [employer]'s Incidental Findings Committee white paper (J Am Adrian Radiol 2018): Any incidental renal lesion less than 1 cm or classified as too small to characterize, or any incidental cystic renal lesion characterized as simple-appearing, is likely benign. No follow-up imaging is recommended for these lesions per consensus recommendations based on imaging criteria. Laboratory Results WBC 10.68 10^3/uL (3.29-11.43) 02/15/25 14:35 RBC 4.94 10^6/uL (3.85-5.65) 02/15/25 14:35 Hgb 16.30 g/dL (11.27-16.99) 02/15/25 14:35 Hct 45.0 % (37-53) 02/15/25 14:35 MCV 91.1 fl (82-101) 02/15/25 14:35 MCH 33.0 pg (27-33) 02/15/25 14:35 MCHC 36.2 g/dL (30-55) 02/15/25 14:35 RDW 12.9 % (12.1-15.1) 02/15/25 14:35 Plt Count 279 10^3/cmm (157-399) 02/15/25 14:35 MPV 9.4 fL (7.4-10.4) 02/15/25 14:35 Neut % (Auto) 75.4 % 02/15/25 14:35 Lymph % (Auto) 15.9 % 02/15/25 14:35 [place] % (Auto) 6.9 % 02/15/25 14:35 Eos % (Auto) 0.7 % 02/15/25 14:35 Baso % (Auto) 0.7 % 02/15/25 14:35 Neut # (Auto) 8.05 10^3/uL (1.8-7.7) H 02/15/25 14:35 Lymph # (Auto) 1.7 10^3/uL (0.8-4.8) 02/15/25 14:35 [place] # (Auto) 0.7 10^3/uL (0.2-0.9) 02/15/25 14:35 Eos # (Auto) 0.1 10^3/uL (0.0-0.8) 02/15/25 14:35 Baso # (Auto) 0.1 10^3/uL (0.0-0.1) 02/15/25 14:35 Nucleated RBC % (auto) 0 % 02/15/25 14:35 Nucleated RBCs # 0.0 /100WBC 02/15/25 14:35 PT 11.90 SECONDS (12.1-14.9) L 02/15/25 11:13 INR 0.82 (0.8-1.2) 02/15/25 11:13 Sodium 141 mmol/L (136-145) 02/17/25 05:02 Potassium 3.8 mmol/L (3.5-5.1) 02/17/25 05:02 Chloride 105 mmol/L (98-107) 02/17/25 05:02 Carbon Dioxide 26 mmol/L (22-29) 02/17/25 05:02 Anion Gap 13.8 (5-19) 02/17/25 05:02 BUN 12 mg/dL (6-20) 02/17/25 05:02 Creatinine 0.7 mg/dL (0.7-1.2) 02/17/25 05:02 GFR Calculation 116.2 mL/min (90-130) 02/17/25 05:02 Glucose 151 mg/dL (65-115) H 02/17/25 05:02 POC Glucose 282 mg/dL (70-110) H 02/17/25 10:46 Calculated Osmolality 295 mOsm/kg (285-295) 02/17/25 05:02 Calcium 8.9 mg/dL (8.5-10.5) 02/17/25 05:02 Phosphorus 2.4 mg/dL (2.5-4.5) L 02/15/25 14:35 Magnesium 1.8 mg/dL (1.7-2.3) 02/15/25 14:35 Magnesium Cancelled 02/15/25 14:35 Total Bilirubin 0.4 mg/dL (0.15-1.2) 02/16/25 05:05 Direct Bilirubin 0.20 mg/dL (0.00-0.30) 02/16/25 05:05 AST 21 U/L (0-40) 02/16/25 05:05 ALT 18 U/L (0-41) 02/16/25 05:05 Alkaline Phosphatase 59 U/L (40-130) 02/16/25 05:05 Total Protein 6.3 g/dL (6.6-8.7) L 02/16/25 05:05 Albumin 3.7 g/dL (3.5-5.2) 02/16/25 05:05 Globulin 2.6 g/dL (1.3-4.6) 02/16/25 05:05 Amylase 84 U/L (21-101) 02/16/25 13:48 Lipase 40 U/L (13-60) 02/16/25 05:05 TSH 1.70 uIU/mL (0.27-4.20) 02/15/25 14:35 Urine Color Dark yellow (Yellow) A 02/17/25 08:05 Urine Appearance Clear (CLEAR) 02/17/25 08:05 Urine pH 5.5 (5-7) 02/17/25 08:05 Ur Specific [place] 1.031 (1.005-1.030) H 02/17/25 08:05 Urine Protein Negative (Negative) 02/17/25 08:05 Urine Glucose (UA) 2+ (Normal) H 02/17/25 08:05 Urine Ketones Negative (Negative) 02/17/25 08:05 Urine Blood Negative (Negative) 02/17/25 08:05 Urine Nitrate Negative (Negative) 02/17/25 08:05 Urine Bilirubin Negative (Negative) 02/17/25 08:05 Urine Urobilinogen 1.0 mg/dL (Negative) 02/17/25 08:05 Ur Leukocyte Esterase Negative (Negative) 02/17/25 08:05 Urine RBC 0-2 /hpf (0-2) 02/17/25 08:05 Urine WBC 0-5 /hpf (0-5) 02/17/25 08:05 Ur Squamous Epith Cells 0-5 /hpf (0-5) 02/17/25 08:05 Amorphous Sediment Not Reportable 02/17/25 08:05 Urine Bacteria None seen /hpf (NONE) 02/17/25 08:05 Hyaline Casts 2.05 /lpf 02/17/25 08:[address] Abd/Pel: Radiologist's impression: Diffuse bladder wall thickening Vitals Last Vital Signs Temp 98.3 F 02/17/25 11:44 Pulse 72 02/17/25 11:44 Resp 16 02/17/25 11:44 BP 109/67 02/17/25 11:44 Pulse Ox 97 02/17/25 11:44 O2 Del Method Room Air 02/17/25 11:44 Discharge Plan Discharge Patient Disposition: Home Condition: Stable Prescriptions: New metformin 500 mg tablet 500 mg PO BID Qty: 60 0RF potassium chloride 10 mEq capsule, extended release 10 meq PO DAILY Qty: 30 0RF Continued atorvastatin 80 mg Tablet 80 mg PO QPM lisinopril 20 mg Tablet 20 mg PO QAM clopidogrel 75 mg Tablet 75 mg PO .@NOON amlodipine 5 mg Tablet 5 mg PO QPM omeprazole 40 mg Capsule,Delayed Release(Dr/Ec) 40 mg PO DAILY aspirin [Aspir-81] 81 mg Tablet,Delayed Release (Dr/Ec) 81 mg PO .@NOON acetaminophen 500 mg Tablet 500 mg PO Q6H PRN (Reason: Pain) fluoxetine [Prozac] 20 mg Capsule 20 mg PO QAM insulin aspart U-100 [Novolog FlexPen U-100 Insulin] 100 unit/mL (3 mL) Insulin Pen 8 - 10 unit SUBCUT TID tadalafil 5 mg Tablet 5 mg PO QPM icosapent ethyl [Vascepa] 1 gram Capsule 2 g PO BID Jardiance 25 mg Tablet 25 mg PO QAM Changed insulin detemir U-100 100 unit/mL (3 mL) Insulin Pen 50 unit SUBCUT BID Qty: 15 0RF Discontinued methocarbamol [Robaxin] 500 mg Tablet 500 mg PO QID Discharge Orders: Discharge Order (Routine); Ordered 02/17/25 Ordered By: Nils Johnson Discharge Diet: Diabetic Discharge Activity: Increase activity as tolerated Patient Instructions: Opioid Safety Activity Restrictions/Additional Instructions: follow up with primary care physician in 1-2 weeks follow up with urology in 1-2 weeks Discharge Attestations Time Spent in Discharge Care*: greater than 30 min Quality Metrics Clinical Quality Measures [ No reported AMI, CVA or VTE this stay] Coding Level of Care Code 11979 Diagnoses Ataxia due to acute cerebrovascular disease I67.89; R27.0 Hypokalemia E87.6 Hypoglycemia E16.2 Weakness R53.1 Diabetes mellitus E11.9 Bladder wall thickening N32.89 Time Spent (min) 50
== END 2025-02-17 15:30 | disposition home or self-care (01) ==
LOC: ER 16:42 → MEDSURG 17:04
PROVIDERS: Admitting Provider Internal Medicine; Emergency Provider Emergency Medicine; Visit Provider Internal Medicine
DX: I67.89 Other cerebrovascular disease (principal); R27.0 Ataxia, unspecified; E87.6 Hypokalemia; E16.2 Hypoglycemia, unspecified; R53.1 Weakness; E11.9 Type 2 diabetes mellitus without complications; N32.89 Other specified disorders of bladder; Z79.82 Long term (current) use of aspirin; K21.9 Gastro-esophageal reflux disease without esophagitis; Z79.4 Long term (current) use of insulin; Z86.73 Personal history of transient ischemic attack (TIA), and cerebral infarction without residual deficits; Z87.891 Personal history of nicotine dependence
CPT/HCPCS: 36415; 36416; 70450; 70496; 70498; 71045; 74177; 80048; 80053; 80076; 81001; 82150; 82962; 83690; 83735; 84100; 84443; 85025; 85610; 93005; 96372; 97165; 99285; G0378; J1650; J1815; J9999